=== PATIENT | female | born 2000 | race Caucasian/White ===

== ENCOUNTER 2021-07-03 22:50 | Emergency (ER) | payer OTHER ==
[~2021-07-03 22:50] MED LIST: FERROUS SULFAT325 M2 PO; FLEXERIL 10 MG10 MG PO; FLONASE 0.05% N16 GM; IBUPROFEN600 MG PO; IBUPROFEN800 MG PO; NORCO 5-325 TA1 EACH PO; PRENATAL TABLE1 EAC1 PO; ZYRTEC10 MG PO
[2021-07-03] MEDS ORDERED: ZOFRAN ODT 4 MG4 MG SL (23:10)
[2021-07-03] MEDS ORDERED: BENZONATATE200 MG PO (23:10)
== END 2021-07-03 23:21 | disposition home or self-care (01) ==
LOC: ER1 22:50
DX: U07.1 COVID-19 (principal)
CPT/HCPCS: 99283